=== PATIENT | female | born 1965 | race Caucasian/White ===

== ENCOUNTER 2018-08-12 12:45 | Day surgery (SDC) | payer OTHER ==
[~2018-08-12] VITALS: Ht 165.1 cm; Wt 57.1 kg
[~2018-08-12 12:45] MED LIST: MULTI VITAMIN1 EACH PO; PERCOCET 7.5-31 EACH PO
[2018-08-12] MEDS ORDERED: CALCIUM500 M1 PO (13:14)
--- NOTE | 2018-08-12 15:34 | NUR ---
08/12/18 1534 Milagros Holt 1527 PT ARRIVED TO PACU ON 3L VIA NC, RESP EVEN AND UNLABORED. PERIODS OF APNEA NOTED WHILE ASLEEP, PT WAKES TO VERBAL STIMULI AND IS ENCOURAGED TO DEEP BREATH. 1527 MD AT BEDSIDE TALKING TO PT. 1528 O2 REMOVED. 1534 PT SITTING IN HIGH FOLWERS SIPPING JUICE.
--- NOTE | 2018-08-13 18:33 | OR ---
[facility] [address], [place] [address] Signed DATE OF OPERATION: 08/12/2018 SURGEON: Ellie Vasques MD PREOPERATIVE DIAGNOSIS: Colon screening. POSTOPERATIVE DIAGNOSIS: Normal colon to cecum. PROCEDURE PERFORMED: Total colonoscopy to cecum. ANESTHESIA: Intravenous sedation, fentanyl 100 mcg, Versed 3 mg. INDICATION: This 53-year-old white woman is a patient of Dr. Dorado. She has no other primary care provider. She has been recommended to undergo colon screening on the basis of her age as well as family history of colon cancer in a paternal grandmother at age 89. The patient has no symptoms of bleeding, diarrhea, or constipation. She is admitted at this time to undergo colonoscopy. She understands the risks of bleeding, infection, perforation, and so on. FINDINGS: The prep was excellent. Complete colonoscopy was undertaken to the cecum without question. There was no sign of polyps, diverticular formation, colitis, or cancer. DESCRIPTION OF PROCEDURE: The patient was brought to the endoscopy suite and placed in lateral decubitus position. Given intravenous sedation to the point of slurred speech and nystagmus. Digital rectal examination was normal. An Olympus video colonoscope was passed in the rectum and manipulated throughout the colon ultimately intubating the cecum itself. The ileocecal valve and appendiceal orifice were normal. The scope was withdrawn from that point and examination throughout showed no sign of abnormality. Retroflexed view in the rectum was normal. Scope was removed and the patient was taken to recovery room in good condition. CONCLUSION DIAGNOSIS: Electronically Signed By: ELLIE VASQUES MD 08/13/18 1833 PATIENT NAME: RIKY COLLINS OPERATIVE REPORT DATE OF : 69 REPORT #: [id number] PHYSICIAN: ELLIE VASQUES MD PCP: NO PRIMARY CARE PHYSICIAN REPORT IS CONFIDENTIAL AND NOT TO BE RELEASED WITHOUT AUTHORIZATION [facility] [address], [place] [address] Signed Normal colon to cecum. PLAN: Recommend repeat colonoscopy in 10 years, sooner if clinically indicated. She will return to the ongoing care of Dr. Dorado. MD SUMMER Bah/MODL /[id number] cc: Parul Dorado MD Copies: PARUL DORADO MD ~ Electronically Signed By: ELLIE VASQUES MD 08/13/18 1833 PATIENT NAME: RIKY COLLINS OPERATIVE REPORT DATE OF : 69 REPORT #: [id number] PHYSICIAN: ELLIE VASQUES MD PCP: NO PRIMARY CARE PHYSICIAN REPORT IS CONFIDENTIAL AND NOT TO BE RELEASED WITHOUT AUTHORIZATION
== END 2018-08-12 15:50 | disposition home or self-care (01) ==
LOC: OPS 12:45 → DS 12:45 → OPS 14:00
PROVIDERS: Surgery
PROC: 0DJD8ZZ Inspection of Lower Intestinal Tract, Via Natural or Artificial Opening Endoscopic (ICD-10-PCS; principal; 2018-08-12 14:00)
DX: Z12.11 Encounter for screening for malignant neoplasm of colon (principal); D56.3 Thalassemia minor; Z88.0 Allergy status to penicillin; Z88.5 Allergy status to narcotic agent; Z80.0 Family history of malignant neoplasm of digestive organs; Z80.3 Family history of malignant neoplasm of breast
CPT/HCPCS: 99153; G0500; J2250; J3010; J7120